=== PATIENT | female | born 1945 | race Caucasian/White ===

== ENCOUNTER 2016-06-05 07:43 | Inpatient (IN) | payer OTHER ==
[~2016-06-05] VITALS: Ht 160 cm; Wt 66.2 kg
[~2016-06-05 07:43] MED LIST: CEPH-570 PO; DIVA500T7 PO; DOCU-25 PO; FURO-145 PO; LEVO300T6 PO; LISI10TA5 PO; METO25TA6 PO; RISP1TAB27 PO; RIVA10TA PO; SIMV20TA6 PO
[2016-06-05 08:00] VITALS: BP 138/79
[2016-06-05] MEDS ORDERED: ACETAMINOPHEN 325 MG TABLET PO PRN (08:30)
[2016-06-05] MEDS ORDERED: MAGNESIUM HYDROXIDE 30 ML UDC PO PRN (08:30)
[2016-06-05] MEDS ORDERED: LORAZEPAM 0.5 MG TABLET PO PRN (08:30)
[2016-06-05] MEDS ORDERED: MAG HYDROX/AL HYDROX/SIMETH 30 ML UDC PO PRN (08:30)
[2016-06-05] MEDS ORDERED: DOCUSATE SODIUM 100 MG CAPSULE PO PRN (12:30)
[2016-06-05] MEDS ORDERED: CEPHALEXIN MONOHYDRATE 500 MG CAPSULE PO SCH (13:00)
[2016-06-05 16:00] VITALS: BP 141/77
[2016-06-05] MEDS: METOPROLOL TARTRATE 25 MG TABLET PO SCH (17:00)
[2016-06-05 20:23] VITALS: BP 120/71
[2016-06-05] MEDS: DIVALPROEX SODIUM 500 MG TABLET.DR PO SCH (21:13)
[2016-06-05] MEDS: SIMVASTATIN 20 MG TABLET PO SCH (21:13)
[2016-06-05] MEDS: QUETIAPINE FUMARATE 25 MG TABLET PO SCH (21:13)
[2016-06-05] MEDS: LEVOFLOXACIN (750 MG) 750 MG TABLET PO SCH (21:14)
[2016-06-05] MEDS: RIVAROXABAN 15 MG TABLET PO SCH (21:17)
[2016-06-06] MEDS ORDERED: LEVOTHYROXINE SODIUM 100 MCG TABLET PO SCH (07:30)
[2016-06-06 08:00] VITALS: BP 117/65
[2016-06-06 08:04] LABS: ALBUMIN 2.9 g/dL (3.4-5.0); BILIRUBIN,TOTAL 0.2 mg/dL (0.2-1.0); CALCIUM, SERUM 9.2 mg/dL (8.5-10.1); POTASSIUM 4.2 mmol/L (3.5-5.1); TOTAL PROTEIN, SERUM 7.4 g/dL (6.4-8.2)
[2016-06-06 08:24] LABS: THYROID STIMULATING HORMONE 19.154 uIU/mL (0.358-3.74)
[2016-06-06] MEDS: METOPROLOL TARTRATE 25 MG TABLET PO SCH ×2 (09:00→17:00)
[2016-06-06] MEDS: LISINOPRIL (10MG) 10 MG TABLET PO SCH (09:00)
[2016-06-06] MEDS: FUROSEMIDE 20 MG TABLET PO SCH (09:01)
[2016-06-06] MEDS: QUETIAPINE FUMARATE 25 MG TABLET PO SCH ×2 (09:07→21:42)
[2016-06-06] MEDS: NEOMY SULF/BACITRAC ZN/POLY 15 GM TUBE TP SCH (13:30)
[2016-06-06] MEDS: Z GUARD REMEDY 2 OZ OINT TP SCH ×2 (13:30→18:00)
[2016-06-06 16:00] VITALS: BP 101/66
[2016-06-06] MEDS: RIVAROXABAN 15 MG TABLET PO SCH (17:00)
[2016-06-06] MEDS: Z GUARD REMEDY 2 OZ OINT TP PRN ×2 (18:51→19:01)
[2016-06-06 19:49] VITALS: BP 142/94
[2016-06-06] MEDS: DIVALPROEX SODIUM 500 MG TABLET.DR PO SCH (21:42)
[2016-06-06] MEDS: SIMVASTATIN 20 MG TABLET PO SCH (21:42)
[2016-06-07] MEDS: Z GUARD REMEDY 2 OZ OINT TP PRN (06:22)
[2016-06-07] MEDS: Z GUARD REMEDY 2 OZ OINT TP SCH ×2 (06:23→16:47)
[2016-06-07 08:00] VITALS: BP 127/80
[2016-06-07] MEDS: QUETIAPINE FUMARATE 25 MG TABLET PO SCH ×4 (08:36→20:42)
[2016-06-07] MEDS: FUROSEMIDE 20 MG TABLET PO SCH (08:37)
[2016-06-07] MEDS: METOPROLOL TARTRATE 25 MG TABLET PO SCH ×2 (08:37→16:46)
[2016-06-07] MEDS: LISINOPRIL (10MG) 10 MG TABLET PO SCH (08:37)
[2016-06-07] MEDS: LEVOTHYROXINE SODIUM 100 MCG TABLET PO SCH (08:37)
[2016-06-07] MEDS: NEOMY SULF/BACITRAC ZN/POLY 15 GM TUBE TP SCH (08:38)
[2016-06-07 16:02] VITALS: BP 122/78
[2016-06-07] MEDS: LEVOFLOXACIN (750 MG) 750 MG TABLET PO SCH (16:46)
[2016-06-07] MEDS: RIVAROXABAN 15 MG TABLET PO SCH (16:47)
[2016-06-07] MEDS: DIVALPROEX SODIUM 500 MG TABLET.DR PO SCH (20:42)
[2016-06-07] MEDS: SIMVASTATIN 20 MG TABLET PO SCH (20:42)
[2016-06-08] MEDS: Z GUARD REMEDY 2 OZ OINT TP SCH ×2 (06:00→18:29)
[2016-06-08 08:00] VITALS: BP 100/66
[2016-06-08] MEDS: LEVOTHYROXINE SODIUM 100 MCG TABLET PO SCH (08:37)
[2016-06-08] MEDS: FUROSEMIDE 20 MG TABLET PO SCH (08:41)
[2016-06-08] MEDS: METOPROLOL TARTRATE 25 MG TABLET PO SCH ×2 (08:41→16:34)
[2016-06-08] MEDS: LISINOPRIL (10MG) 10 MG TABLET PO SCH (08:42)
[2016-06-08] MEDS: QUETIAPINE FUMARATE 25 MG TABLET PO SCH ×3 (08:43→21:57)
[2016-06-08] MEDS: NEOMY SULF/BACITRAC ZN/POLY 15 GM TUBE TP SCH (09:57)
[2016-06-08 16:00] VITALS: BP 156/79
[2016-06-08] MEDS: RIVAROXABAN 15 MG TABLET PO SCH (16:37)
[2016-06-08 20:00] VITALS: BP 146/90
[2016-06-08] MEDS: SIMVASTATIN 20 MG TABLET PO SCH (21:57)
[2016-06-08] MEDS: DIVALPROEX SODIUM 500 MG TABLET.DR PO SCH (21:57)
[2016-06-09] MEDS: Z GUARD REMEDY 2 OZ OINT TP SCH (06:42)
[2016-06-09 08:00] VITALS: BP 141/91
[2016-06-09] MEDS: LEVOTHYROXINE SODIUM 100 MCG TABLET PO SCH (08:17)
[2016-06-09] MEDS: QUETIAPINE FUMARATE 25 MG TABLET PO SCH (08:18)
[2016-06-09 08:19] VITALS: BP 141/91
[2016-06-09] MEDS: METOPROLOL TARTRATE 25 MG TABLET PO SCH (08:19)
[2016-06-09] MEDS: FUROSEMIDE 20 MG TABLET PO SCH (08:19)
[2016-06-09] MEDS ORDERED: LISINOPRIL (10MG) 10 MG TABLET PO SCH (09:00)
[2016-06-09] MEDS: NEOMY SULF/BACITRAC ZN/POLY 15 GM TUBE TP SCH (10:23)
== END 2016-06-09 12:20 | disposition home or self-care (01) | DRG 885 ==
LOC: GPS 07:43
PROVIDERS: ADMIT Psychiatry & Neurology Psychiatry; ATTEND Family Medicine
DX: F31.64 Bipolar disorder, current episode mixed, severe, with psychotic features (principal); G92 Toxic encephalopathy; N39.0 Urinary tract infection, site not specified; F29 Unspecified psychosis not due to a substance or known physiological condition; F41.9 Anxiety disorder, unspecified; I48.91 Unspecified atrial fibrillation; I10 Essential (primary) hypertension; E78.5 Hyperlipidemia, unspecified; K21.9 Gastro-esophageal reflux disease without esophagitis; E03.9 Hypothyroidism, unspecified; D64.9 Anemia, unspecified; F03.90 Unspecified dementia, unspecified severity, without behavioral disturbance, psychotic disturbance, mood disturbance, and anxiety; Z79.01 Long term (current) use of anticoagulants
CPT/HCPCS: 36415; 80053-TC; 80061-TC; 80164-TC; 84436-TC; 84439-TC; 84443-TC; 87081-TC; A6402